=== PATIENT | female | born 1955 | race Caucasian/White ===

== ENCOUNTER → 2023-04-11 | Outpatient (CLI) | payer MEDICARE, BC ==
--- NOTE | 2023-04-16 11:11 | MM ---
Reason for Exam: Clinical finding. Indicated Problems: Lump or thickening of the right side for 1 Month(s). Patient History: Menarche at age 13. First Full-Term at age 32. Late child-bearing (after 29). Postmenopausal. Patient has history of breast feeding. Risk Values: Nevin 5 year model risk: 2.1%. NCI Lifetime model risk: 6.9%. Prior Study Comparison: 03/19/2023 Right Diagnostic Ultrasound, [facility]. Tissue Density: The breast tissue is heterogeneously dense. This may lower the sensitivity of mammography. Findings: Analyzed By CAD. Multiple bilateral benign-appearing calcifications. No new suspicious masses, calcifications or distortions. Overall Assessment: Benign, BI-RAD 2 Management: Screening Mammogram of both breasts in 1 year. Results were given to the patient verbally at the time of exam. Patient should continue monthly self-breast exams. A clinical breast exam by your physician is recommended on an annual basis. This exam should not preclude additional follow-up of suspicious palpable abnormalities. Note on Nevin scores and lifetime risk: 1. A Nevin score greater than 3% is considered moderate risk. If this is the case, consider specialist referral to assess eligibility for a risk reducing agent. 2. If overall lifetime risk for the development of breast cancer is 20% or higher, the patient may qualify for future screening with alternating mammogram and breast MRI. Electronically signed and approved by: Kyle Ch DO
== END | disposition home or self-care (01) ==
LOC: RADMAMWWP 13:14
PROVIDERS: ATTEND Family Medicine
DX: R92.8 Other abnormal and inconclusive findings on diagnostic imaging of breast (principal); Z78.0 Asymptomatic menopausal state
CPT/HCPCS: 77066; G0279; 77062

== ENCOUNTER → 2024-02-21 | Outpatient (CLI) | payer MEDICARE, BC ==
--- NOTE | 2024-02-21 13:19 | US ---
EXAMINATION TYPE: US venous doppler duplex LE DATE OF EXAM: 02/21/2024 12:33 PM COMPARISON: NONE CLINICAL INDICATION: Female, 68 years old with history of R60.0 LOCALIZED EDEMA; Bilateral feet swell ing SIDE PERFORMED: Bilateral TECHNIQUE: The lower extremity deep venous system is examined utilizing real time linear array sonog ian with graded compression, doppler sonography and color-flow sonography. VESSELS IMAGED: Common Femoral Vein Deep Femoral Vein Greater Saphenous Vein * Femoral Vein Popliteal Vein Small Saphenous Vein * Proximal Calf Veins (* superficial vessels) Right Leg: Appears negative for DVT Left Leg: Appears negative for DVT IMPRESSION: Grayscale, color doppler, spectral doppler imaging performed of the deep veins of the lo wer extremities. There is normal flow, compressibility, vascular waveforms.
--- NOTE | 2024-02-21 13:22 | US ---
EXAMINATION TYPE: US arterial LE multi level DATE OF EXAM: 02/21/2024 12:58 PM CLINICAL INDICATION: Female, 68 years old with history of R60.0 LOCALIZED EDEMA; Bilateral feet swell ing History of: Smoker: Previous Hypertension: No Diabetic: No Hyperlipidemia: Yes TIA/CVA: No Previous Vascular Surgery: No [place]: No Vascular Ulcers: No Claudication: No Gangrene: No Right Brachial Pressure: 134 Left Brachial Pressure: 131 Ankle-Brachial Indices: Right: 1.18 Left: 1.27 (Vessel hardening > 1.4; Normal 0.9 - 1.4, Moderate 0.7 - 0.9, Severe 0.5-0.7) IMPRESSION: Normal bilateral RAY.
== END | disposition home or self-care (01) ==
LOC: RADUSWWP 12:04
PROVIDERS: ATTEND Family Medicine
DX: E78.5 Hyperlipidemia, unspecified (principal); R60.0 Localized edema; Z87.891 Personal history of nicotine dependence
CPT/HCPCS: 93922; 93970